=== PATIENT | male | born 1975 | race Caucasian/White ===

== ENCOUNTER 2019-12-30 17:36 | Emergency (ER) | payer BC ==
[2019-12-30 17:55] VITALS: BP 102/65; PULSE 83; RESP 18; TEMP 98.9
[2019-12-30] MEDS ORDERED: DIPH,PERTUS(ACELL)TETVAC-LF 0.5 ML VIAL IM ONE (18:01)
[2019-12-30] MEDS ORDERED: LIDOCAINE 1%-EPI 1:100,000 20 ML VIAL SQ STA (18:01)
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
[2019-12-30 18:37] LABS: Glucose,Whole Blood 144 mg/dL (75-99)
--- NOTE | 2019-12-30 18:51 | XR ---
Left hand HISTORY: Possible cerumen, laceration 3 views of the left hand are correlated to left wrist dated 11/18/2014 Non fused ulnar styloid fracture is stable. There is no radiopaque foreign body. Bone mineralization, joint spaces and alignment are stable. Lucency present in the soft tissues laterally. IMPRESSION: Findings compatible with puncture wound.
== END 2019-12-30 18:48 | disposition home or self-care (01) ==
LOC: EC 17:36
DX: S61.432A Puncture wound without foreign body of left hand, initial encounter (principal); Z23 Encounter for immunization; Z87.891 Personal history of nicotine dependence; W22.8XXA Striking against or struck by other objects, initial encounter
CPT/HCPCS: 12001; 36415; 90471; 90715; 99283

== ENCOUNTER → 2023-06-09 | Outpatient (CLI) | payer OTHER ==
--- NOTE | 2023-06-09 16:53 | XR ---
EXAMINATION TYPE: XR shoulder complete RT DATE OF EXAM: 06/09/2023 COMPARISON: NONE HISTORY: Pain TECHNIQUE: Right Shoulder examined in 3 projections. FINDINGS: The humeral head articulates with the glenoid. The acromio-clavicular junction is normal. No acute fractures or dislocations are evident. A follow up study can be performed 7-10 days from acute trauma for continued pain. MRI can be perfor med if soft tissue evaluation would be of benefit. IMPRESSION: 1. No acute osseous right shoulder abnormality.
== END | disposition home or self-care (01) ==
LOC: RADXRMAIN 16:36
PROVIDERS: ATTEND Emergency Medicine
DX: S46.011A Strain of muscle(s) and tendon(s) of the rotator cuff of right shoulder, initial encounter (principal); M25.511 Pain in right shoulder; X58.XXXA Exposure to other specified factors, initial encounter

== ENCOUNTER → 2023-06-23 | Outpatient (CLI) | payer OTHER ==
--- NOTE | 2023-06-27 15:51 | MR ---
EXAMINATION TYPE: MR shoulder RT wo con DATE OF EXAM: 06/27/2023 COMPARISON: X-ray 06/09/2023 HISTORY: Rt shoulder pain, injury TECHNIQUE: Multiplanar, multisequence imaging of the right shoulder is performed without contrast. FINDINGS: Rotator Cuff: There is abnormal signal involving the anterior fibers of the supraspinatus insertion o n the humeral head measuring approximately 5 x 4 mm compatible with a partial thickness tear. There i s no retraction. Small amount of fluid in the subacromial bursa. The subscapularis and infraspinatus tendons appear intact with no definite tear. There is a small jose unt of fluid adjacent to the subscapularis tendon which may represent a small amount of bursal fluid rather than ganglion cyst. Acromioclavicular Joint: Normal AC joint distance. No sizable spurring. Glenohumeral Joint: No sizable joint effusion. Glenohumeral ligaments appear intact. Labrum: The labrum appears grossly intact given limitation of non-arthrogram study. Biceps Tendon: The long head of biceps is in normal location within bicipital groove. Increased fluid surrounding the tendon compatible with bicipital tendinosis. Bone marrow signal: No focal abnormal marrow signal is appreciated. RF other: Scattered lymph nodes a re seen within the axilla. IMPRESSION: 1. Partial through thickness tear anterior fibers insertion supraspinatus tendon measuring 5 x 4 mm. No retraction. 2. Bicipital tendinosis.
== END | disposition home or self-care (01) ==
LOC: RADMRIMAIN 07:06
PROVIDERS: ATTEND Emergency Medicine
DX: M67.813 Other specified disorders of tendon, right shoulder (principal); S46.011D Strain of muscle(s) and tendon(s) of the rotator cuff of right shoulder, subsequent encounter; X58.XXXD Exposure to other specified factors, subsequent encounter